=== PATIENT | female | born 2000 | race Hispanic/Latino ===

== ENCOUNTER 2023-04-28 18:29 | Emergency (ER) | payer OTHER ==
[~2023-04-28] VITALS: Ht 167.6 cm; Wt 90.7 kg
[2023-04-28 18:39] VITALS: BP 128/77; PULSE 95; RESP 18; O2SAT 100
[2023-04-28] MEDS: ACETAMINOPHEN 500 MG TABLET PO ONE (19:41)
== END 2023-04-28 20:03 | disposition left against medical advice (07) ==
LOC: EDH 18:29
DX: G44.309 Post-traumatic headache, unspecified, not intractable (principal); W18.39XA Other fall on same level, initial encounter; Y93.89 Activity, other specified; Y92.89 Other specified places as the place of occurrence of the external cause; Y99.8 Other external cause status
CPT/HCPCS: 99282